=== PATIENT | female | born 1965 | race African-American/Black ===

== ENCOUNTER 2021-02-14 11:25 | Outpatient (REF) | payer OTHER, SELFPAY ==
--- NOTE | ~2021-02-14 | XR_ITS ---
EXAMINATION: XR LUMBOSACRAL SPINE CLINICAL INFORMATION: Back pain. COMPARISON: None TECHNIQUE: Three views of the lumbosacral spine. FINDINGS: Mild levocurvature of the lumbar spine. The lumbar lordosis is maintained. No acute fracture or subluxation. No loss of vertebral body height. Mild multilevel loss of intervertebral disc height with tiny endplate osteophytes. Bilateral facet arthropathy at L4 through S1. No lytic or blastic osseous lesion. No abnormal soft tissue calcification. XR/XR lumbar spine 2-3V IMPRESSION: Mild multilevel degenerative disc disease. Bilateral facet arthropathy at L4 through S1.
--- NOTE | ~2021-02-14 | XR_ITS ---
EXAMINATION: XR SHOULDER, LEFT CLINICAL INFORMATION: Left shoulder pain. COMPARISON: None TECHNIQUE: AP external rotation, Grashey, scapular Y, and axillary views of the left shoulder. FINDINGS: Small acromioclavicular marginal osteophytes with tiny subacromial spurs. Tiny inferior glenohumeral marginal osteophytes. No osseous erosion. No fracture or dislocation. XR/XR shoulder LT min 2V IMPRESSION: Mild acromioclavicular osteoarthritis with tiny subacromial spurs. Minimal glenohumeral osteoarthritis.
== END 2021-02-14 11:26 | disposition home or self-care (01) ==
LOC: HO.XRAY 11:25
PROVIDERS: PCP Internal Medicine; Visit Provider Internal Medicine
DX: M54.9 Dorsalgia, unspecified (principal); M25.512 Pain in left shoulder
CPT/HCPCS: 72100; 73030

== ENCOUNTER 2021-04-06 10:00 | Outpatient (RCR) | payer OTHER, SELFPAY ==
--- NOTE | 2021-03-05 13:50 | MHC.PT.EP ---
[facility] [place] Office [place] Office [place] Office [address] Alan Schwartz [address] [phone] F: [phone] F: [phone] F: [phone] F: [phone] Physical Therapy Plan of Care Date of Evaluation: Date of Surgery: Diagnosis: Unspecified Dorsalgia and L shoulder pain. 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 Pt is deemed an appropriate candidate to receive skilled PT in order to address her physical limitations to improve her functional ability. Frequency and Duration: The patient will be seen 2 x / wk x 5 wks. Short Term Goals: Initiate HEP. Pt will achieve symmetrical shoulder AROM flexion; initial: 30 Degrees L arm flexion. Chcf Goals: I with HEP. Pt will be able to place objects on a high shelf with managed Sx. initial: unable. Pt will be able to push and pull objects of weight with managed Sx. Initial: unable Treatment Plan: Modalities to reduce pain, spasms and effusion. Manual therapy to restore motion and function. Therapeutic exercise to improve strength and flexibility. Neuromuscular re-education for posture and balance. Therapeutic activities to return to functional activities of daily living. Electronically signed by: Reynold Boo PT. Please sign and return to therapist. Thank you for your referral.
--- NOTE | 2021-04-06 11:28 | MHC.PT.DC ---
[facility] [place] Office [place] Office [place] Office [address] Alan Schwartz 140 [facility] [phone] F: [phone] F: [phone] F: [phone] F: [phone] Physical Therapy Discharge Report Diagnosis: Unspecified Dorsalgia and L shoulder pain. Date of Surgery: Date of Evaluation: 03/02/21 Date of Discharge: 04/06/21 Treatments to Date: 8 Cancellations to Date: No Shows to Date: Discharge Status: Achieved Goals Improved Function Independent with HEP Discharge Summary: Manasa was referred to PT for eval/treat of traumatic L arm and dorsal pain secondary to decreased L UE strength and ROM, decreased posture, increased tissue tension and pain resulting decreased functional abilities. Manasa participated in her ther/ex during PT visits. W/in 8 visits of physical therapy, pt was able to address all of her physical limitation, improve her functional abilities, and achieve all of her goals. Pt and PT in agreement with DC. PT recommends pt to cont participating her HEP. Electronically signed by: Reynold Boo PT. Please sign and return to therapist. Thank you for your referral.
== END 2021-04-06 11:29 | disposition home or self-care (01) ==
LOC: HO.PTCHIC 10:00
PROVIDERS: PCP Internal Medicine; Visit Provider Internal Medicine
DX: M54.9 Dorsalgia, unspecified (principal); M25.519 Pain in unspecified shoulder
CPT/HCPCS: 97014; 97110; 97140; 97161

== ENCOUNTER 2021-04-06 12:27 | Outpatient (RCR) | payer OTHER, SELFPAY | END 2021-04-18 15:35 | disposition home or self-care (01) | LOC: HO.WCC 12:27 | PROVIDERS: PCP Internal Medicine; Visit Provider Physician Assistant | DX: L02.31 Cutaneous abscess of buttock (principal) | CPT/HCPCS: 99212 ==

== ENCOUNTER → 2021-05-01 16:00 | Outpatient (BNVA) | payer OTHER, SELFPAY | PROVIDERS: PCP Internal Medicine; Referring Provider Internal Medicine; Visit Provider Surgery ==

== ENCOUNTER 2022-03-14 15:39 | Outpatient (REF) | payer OTHER, SELFPAY ==
[2022-03-15 03:27] LABS: CT PCR NOT DETECTED (Not Detect.); NG PCR NOT DETECTED (Not Detect.)
[2022-03-20 22:07] LABS: HPV mRNA E6/E7 rflx Not Detected (Not Detected)
== END 2022-03-14 15:40 | disposition home or self-care (01) ==
LOC: HO.LAB 15:39
PROVIDERS: Visit Provider Obstetrics & Gynecology
DX: Z01.419 Encounter for gynecological examination (general) (routine) without abnormal findings (principal); R10.2 Pelvic and perineal pain; I10 Essential (primary) hypertension; E03.9 Hypothyroidism, unspecified; E78.5 Hyperlipidemia, unspecified; Z13.0 Encounter for screening for diseases of the blood and blood-forming organs and certain disorders involving the immune mechanism; Z11.51 Encounter for screening for human papillomavirus (HPV); Z11.3 Encounter for screening for infections with a predominantly sexual mode of transmission
CPT/HCPCS: 87491; 87591; 87624; 88142

== ENCOUNTER 2022-05-02 12:30 | Outpatient (REF) | payer OTHER, SELFPAY ==
--- NOTE | ~2022-05-02 | US_ITS ---
EXAMINATION: US PELVIS CLINICAL INFORMATION: Pelvic and perineal pain. COMPARISON: None. TECHNIQUE: Ultrasound of the pelvis is performed using both transabdominal and transvaginal transducers along with Doppler. Transvaginal imaging is performed due to inadequate visualization transabdominally. FINDINGS: UTERUS: The uterus is anteverted and measures 7.4 cm in length, 2.9 mL in AP and 4.6 cm in transverse dimension. The double wall endometrial thickness is 0.3 cm and appears heterogeneous. The uterus is smooth in contour and heterogeneous echogenicity. No visible fibroid. ADNEXA: Both ovaries are visualized. There is normal color flow to the adnexa. There is no ovarian torsion. There is no pelvic ascites or fluid collection. Right ovary measures 2.3 x 1.1 x 1.7 cm and volume 2.3 mL. Small echogenic calcification seen. Previously right ovary measured 2.3 x 1.2 x 1.4 cm and volume 2.06 cm. Left ovary measures 2.5 x 1.2 x 1.8 cm and volume 2.8 mL. Previously it measured 1.5 x 0.9 x 1.6 cm and volume 1.1 mL. US/US pelvic and transvaginal IMPRESSION: Heterogeneous myometrium. No focal lesion seen. Calcifications within the right ovary.
== END 2022-05-02 12:31 | disposition home or self-care (01) ==
LOC: HO.US 12:30
PROVIDERS: Visit Provider Obstetrics & Gynecology
DX: R10.2 Pelvic and perineal pain (principal)
CPT/HCPCS: 76830; 76856

== ENCOUNTER 2023-03-20 12:07 | Outpatient (AMB) | payer OTHER, SELFPAY ==
[2023-03-20 12:23] VITALS: BP 130/78; PULSE 84; O2SAT 97; BMI 36.4
--- NOTE | 2023-03-20 12:23 | MHC.PC.OV ---
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 Accompanied by: Self / Same As Patient Allergies No Known Allergies [No Known Allergies*] Allergy (Verified 03/20/23 12:23) Medication List - Last Reconciled 03/20/23 by Gerardo Hand MD multivitamin 1 tab PO DAILY Tobacco use date assessed: 03/20/23 Dental Screening Dental Screen Date: 03/20/23 Did you have a dental visit in the last 12 months?: Yes Did you have a dental problem in the last 6 months where you did not have access to dental care?: No Was dental information given to patient?: Patient has dentist HPI Annual exam HPI Details healthy [facility] Medical History Obesity Wound of buttock Surgical History No pertinent past surgical history Family History Mother No problems noted. Father No problems noted. Social History Housing: House Patient Tobacco Use Status: Never used Tobacco e-Cigarette/Vaping Use: Never Used Second Hand Smoke Exposure: No service: No Current occupational status: employed Cognitive needs: No Hearing needs: No Vision needs: Yes Questionnaire PHQ-9 Over the last 2 weeks, how often have you been bothered by any of the following problems? 1. Little interest or pleasure in doing things: not at all 2. Feeling down, depressed, or hopeless: not at all 3. Trouble falling or staying asleep, or sleeping too much: not at all 4. Feeling tired or having little energy: not at all 5. Poor appetite or overeating: not at all 6. Feeling bad about yourself - or that you are a failure or have let yourself or your family down: not at all 7. Trouble concentrating on things, such as reading the newspaper or watching television: not at all 8. Moving or speaking so slowly that other people could have noticed. Or the opposite - being so fidgety or restless that you have been moving around a lot more than usual: not at all 9. Thoughts that you would be better off or of hurting yourself in some way: not at all Total score: 0 Depression Screening Interpretation: Negative 10324 - PHQ-9 Billing: Yes Source: Developed by Drs. Destin Bradford, Anni Eden, Enrique Hawk and colleagues, with an educational yousif from [employer]. Thrive Questionnaire Date Thrive assessed: 03/20/23 I am a: Patient What is your living situation today?: I have a steady place to live Within the past 12 months, did the food you bought not last and you didn't have the money to get more?: Never true Within the past 12 months, did you worry whether your food would run out before you got money to buy more?: Never true Do you have trouble paying for medicines?: No Do you have trouble getting transportation to medical appointments?: No Do you have trouble paying your heating and electricity bill?: No Do you have trouble taking care of your child, family member or friend?: No Do you have trouble with day-to-day activities such as bathing, preparing meals, shopping, managing finances, etc.?: No Are you currently unemployed and looking for a job?: No Are you interested in more education?: No Currently or been in a relationship where the following occur: no concerns reported AUDIT C Alcohol Use Questionnaire (AUDIT-C) 1. How often do you have a drink containing alcohol?: Never Total Score: 0 Score Reviewed/Action Taken: Yes EDWARDO-7 AMB Questionnaire EDWARDO-7 Date EDWARDO - 7 assessed: 03/20/23 Feeling nervous, anxious, or on edge: 0 = Not at all Not being able to stop or control worryin = Not at all Worrying too much about different things: 0 = Not at all Trouble relaxin = Not at all Being so restless that it is hard to sit still: 0 = Not at all Becoming easily annoyed or irritable: 0 = Not at all Feeling afraid as if something awful might happen: 0 = Not at all Total EDWARDO-7 score (0-4 normal; 5-9 mild; 10-14 moderate; 15-21 severe): 0 Source: Developed by Drs. Destin Bradford, Anni Eden, Enrique Hawk and colleagues, with an educational yousif from [employer]. EDWARDO-7 Assessment Billing EDWARDO-7 Assessment Tool: EDWARDO-7 Assessment 63311 Review of Systems Const Denies chills, Denies fatigue, Denies headache(s) and Denies weight loss Eyes Denies change in vision, Denies diplopia and Denies eye pain ENT Denies vertigo, Denies dizziness, Denies headache(s) and Denies nasal discharge Card Denies chest pain, Denies rapid heart rate and Denies dyspnea on exertion Resp Denies chest congestion, Denies cough, Denies pain with cough and Denies dyspnea on exertion GI Denies abdominal pain, Denies hematochezia and Denies change in bowel habits Musc Denies myalgias, Denies arthralgias and Denies joint swelling Skin/Breast Denies lesions and Denies unusual bruising Neuro Denies vertigo, Denies dizziness, Denies headache(s) and Denies focal weakness Endo Denies fatigue Physical exam (Primary Care) Vital Signs: Last Vital Signs Pulse 84 03/20/23 12:23 BP 130/78 03/20/23 12:23 Pulse Ox 97 03/20/23 12:23 Oxygen Delivery Method Room Air 03/20/23 12:23 BMI result Body Mass Index 36.4 obesity BMI Assessment/Plan discussion: High BMI High, discussed plan: lifestyle, weight reduction, dietary and physical activity Tobacco/Smoking Status: Tobacco use Status Tobacco use date assessed 03/20/23 03/20/23 12:26 Patient Tobacco Use Status Never used Tobacco 03/20/23 12:26 e-Cigarette/Vaping Use Never Used 03/20/23 12:26 PHQ-9: PHQ-9 Score PHQ-9: Total score 0 03/20/23 12:26 Depression Screening Interpretation: Negative Thrive Assessment: Date of Thrive Assessment Date Thrive assessed 03/20/23 03/20/23 12:26 Currently or been in a relationship where the following occur: no concerns reported Const General: cooperative, healthy appearing and no acute distress Orientation/consciousness: oriented to person, oriented to place and oriented to time HENMT Head: Yes normal to inspection, Yes normocephalic and Yes atraumatic Mouth: Normal oral and palatal mucosa present and tongue normal Throat: Yes posterior oropharynx normal and Yes uvula midline Eyes General: appearance normal, both eyes and all related structures Neck Neck: Yes normal visual inspection, Yes full ROM and Yes no lymphadenopathy Thyroid: Thyroid normal Carotids: normal carotid upstroke Chest Chest palpation & inspection: normal inspection of the chest Resp Effort & Inspection: normal respiratory effort and able to speak in complete sentences Auscultation: clear to auscultation bilaterally Cardio Jugular venous distension: no JVD Palpation: normal PMI Rate: regular rate Rhythm: regular rhythm Heart sounds: S1 normal heart sound present and S2 normal heart sound present GI Inspection: Yes normal to inspection Palpation (GI): Soft to palpation and No hepatosplenomegaly present Auscultation: normal bowel sounds General: Yes no CVA tenderness Back/Spine/Pelvis Back: no CVA tenderness Skin General skin exam: no rashes or lesions noted Neuro General: oriented to person, oriented to place and oriented to time Extrem General: Yes normal to inspection and Yes full ROM Assessment and Plan Assessment & Plan (1) Physical exam: Code(s): Z00.00 - Encounter for general adult medical examination without abnormal findings Plan: do labs (2) Obesity: Comment: as above Code(s): E66.9 - Obesity, unspecified Orders: Orders Comprehensive [place]. Panel Fast Today N28.9 - Disorder of kidney and ureter, unspecified Lipid Panel Today E78.5 - Hyperlipidemia, unspecified Thyroid Stimulating Hormone Today E03.9 - Hypothyroidism, unspecified Complete Blood Count Auto Diff Today D64.9 - Anemia, unspecified MM tomosynthesis screen imp BI Today Z12.31 - Encounter for screening mammogram for malignant neoplasm of breast Coding Level of Care Code Est Pt Prev Care 40-64y(19407) Diagnoses Physical exam Z00.00 Obesity E66.9 Additional Codes EDWARDO-7 Assessment Billing - EDWARDO-7 Assessment Tool: EDWARDO-7 Assessment 56095 ([id number])
== END 2023-03-20 13:03 | disposition home or self-care (01) ==
PROVIDERS: PCP Internal Medicine; Visit Provider Internal Medicine
DX: Z00.00 Encounter for general adult medical examination without abnormal findings (principal); E66.9 Obesity, unspecified; Z68.36 Body mass index [BMI] 36.0-36.9, adult
CPT/HCPCS: 99396

== ENCOUNTER 2023-04-01 11:04 | Outpatient (REF) | payer OTHER, SELFPAY ==
[2023-04-01 11:13] LABS: MANUAL DIFF FLAG NO
[2023-04-01 11:26] LABS: Basophils Percent Auto 0.5 % (0-2); Eosinophils Absolute Auto 0.1 X10*3/uL (0.0-0.4); Eosinophils Percent Auto 0.9 % (0-4); Hematocrit 40.2 % (37.0-47.0); Imm Gran Abs Auto 0.01 X10*3/uL (0.00-0.03); Imm Gran Pct Auto 0.2 % (0.0-0.4); Lymphocytes Absolute Auto 2.2 X10*3/uL (1.2-4.9); Lymphocytes Percent Auto 39.7 % (20-40); Mean Corpuscular HGB Conc 32.3 g/dl (31.0-35.0); Mean Corpuscular Hemoglobin 26.8 pg (27.0-33.0); Mean Corpuscular Volume 82.9 fL (80.0-98.0); Mean Platelet Volume 11.1 fL (9.4-12.3); Monocytes Absolute Auto 0.6 X10*3/uL (0.1-1.2); Monocytes Percent Auto 11.1 % (2-11); Neutrophils Absolute Auto 2.7 x10*3/uL (2.0-8.3); Neutrophils Percent Auto 47.6 % (45-73); Platelet Count 223 X10*3/uL (160-400); Red Blood Count 4.85 X10*6/uL (4.20-5.50); Red Cell Distribution Width 12.6 % (11.0-16.0); White Blood Count 5.6 X10*3/uL (4.8-10.8)
[2023-04-01 12:23] LABS: Alanine Aminotransferase 50 U/L (0-31); Albumin Level 4.4 g/dL (3.5-5.0); Alkaline Phosphatase 120 U/L (39-117); Anion Gap 13 (12-20); Aspartate Amino Transferase 41 U/L (5-31); Bilirubin Total 0.5 mg/dL (0.0-1.0); Blood Urea Nitrogen 5 mg/dL (9-16); Calcium 9.3 mg/dL (8.4-10.2); Carbon Dioxide 29 mmol/L (22-29); Chloride 102 mmol/L (96-108); Cholesterol 252 mg/dL (<200); Estimated Glomerular Filt Rate > 60; Glucose Fasting 175 mg/dL (60-99); HDL Cholesterol 49 mg/dL (>40); LDL Cholesterol Calculated 179 mg/dL (<100); Potassium 4.2 mmol/L (3.3-5.1); Sodium 140 mmol/L (135-145); Total Protein 8.3 g/dL (6.5-8.0); Triglycerides 120 mg/dL (<150)
[2023-04-01 12:41] LABS: Thyroid Stimulating Hormone 1.66 uIU/mL (0.32-4.0)
== END 2023-04-01 11:05 | disposition home or self-care (01) ==
LOC: HO.LAB 11:04
PROVIDERS: PCP Internal Medicine; Visit Provider Internal Medicine
DX: E03.9 Hypothyroidism, unspecified (principal); N28.9 Disorder of kidney and ureter, unspecified; D64.9 Anemia, unspecified; E78.5 Hyperlipidemia, unspecified
CPT/HCPCS: 36415; 80053; 80061; 84443; 85025

== ENCOUNTER 2023-04-04 15:15 | Outpatient (REF) | payer OTHER, SELFPAY ==
[2023-04-04 16:01] LABS: Estimated Average Glucose 255 mg/dL; Hemoglobin A1c % 10.5 % (<6.0)
[2023-04-05 14:15] LABS: ~Hepatitis B Surface Antibody NONREACTIVE (Nonreactive)
[2023-04-07 12:08] LABS: TS Negative Control Passed; TS Panel A 0; TS Panel B 6; TS Positive Control Passed; TSpotTB Borderline (Negative)
[2023-04-08 21:37] LABS: Rubella IgG Antibody >33.00 Index; Rubeola IgG (Measles) >300.00 AU/mL
== END 2023-04-04 15:16 | disposition home or self-care (01) ==
LOC: HO.LAB 15:15
PROVIDERS: PCP Internal Medicine; Visit Provider Internal Medicine
DX: Z00.00 Encounter for general adult medical examination without abnormal findings (principal); Z11.1 Encounter for screening for respiratory tuberculosis; R73.9 Hyperglycemia, unspecified; Z28.39 Other underimmunization status
CPT/HCPCS: 36415; 83036; 86481; 86706; 86735; 86762; 86765; 86787

== ENCOUNTER 2023-04-08 14:01 | Outpatient (AMB) | payer OTHER, SELFPAY ==
--- NOTE | 2023-04-08 14:17 | AM.OFFVISNUR ---
Intake Intake Visit Reasons: ppd implant Allergies No Known Allergies [No Known Allergies*] Allergy (Verified 03/20/23 12:23) Office Meds tuberculin PPD Performing Provider: Gerardo Hand MD Administered by: Tashia Barkley RN on 04/08/23 14:17 Dose Route Admin Location Lot Number Expiration Date NDC Canvas Cutter 0.1 mL intradermal [id number] 06/02/26 07982-992-20 [employer] Coding Diagnoses Assessment & Plan Assessment & Plan Orders: Orders AMB PPD Planted Today Z11.1 - Encounter for screening for respiratory tuberculosis
== END 2023-04-08 14:14 | disposition home or self-care (01) ==
PROVIDERS: PCP Internal Medicine; Visit Provider Internal Medicine
DX: Z11.1 Encounter for screening for respiratory tuberculosis (principal)
CPT/HCPCS: 86580

== ENCOUNTER 2023-04-09 10:20 | Outpatient (AMB) | payer OTHER, SELFPAY ==
[2023-04-09 10:20] VITALS: BP 136/78; PULSE 110; O2SAT 98; BMI 35.4
--- NOTE | 2023-04-09 10:20 | MHC.PC.OV ---
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: Not Required per policy Accompanied by: Self / Same As Patient Allergies No Known Allergies [No Known Allergies*] Allergy (Verified 04/09/23 10:21) Tobacco use date assessed: 03/20/23 Dental Screening Dental Screen Date: 04/09/23 Did you have a dental visit in the last 12 months?: Yes Did you have a dental problem in the last 6 months where you did not have access to dental care?: No Was dental information given to patient?: Patient has dentist HPI DM follow up HPI Details has DM again; had in the past but recurred [facility] Medical History Obesity Vaginal pain Wound of buttock Surgical History No pertinent past surgical history Family History Mother No problems noted. Father No problems noted. Social History Housing: House Patient Tobacco Use Status: Never used Tobacco e-Cigarette/Vaping Use: Never Used Second Hand Smoke Exposure: No service: No Current occupational status: employed Cognitive needs: No Hearing needs: No Vision needs: Yes Questionnaire PHQ-9 Over the last 2 weeks, how often have you been bothered by any of the following problems? 1. Little interest or pleasure in doing things: not at all 2. Feeling down, depressed, or hopeless: not at all 3. Trouble falling or staying asleep, or sleeping too much: not at all 4. Feeling tired or having little energy: not at all 5. Poor appetite or overeating: not at all 6. Feeling bad about yourself - or that you are a failure or have let yourself or your family down: not at all 7. Trouble concentrating on things, such as reading the newspaper or watching television: not at all 8. Moving or speaking so slowly that other people could have noticed. Or the opposite - being so fidgety or restless that you have been moving around a lot more than usual: not at all 9. Thoughts that you would be better off or of hurting yourself in some way: not at all Total score: 0 Depression Screening Interpretation: Negative 42104 - PHQ-9 Billing: Yes Source: Developed by Drs. Destin Bradford, Anni Eden, Enrique Hawk and colleagues, with an educational yousif from [employer]. Thrive Questionnaire Date Thrive assessed: 03/20/23 AUDIT C Alcohol Use Questionnaire (AUDIT-C) 1. How often do you have a drink containing alcohol?: Never Total Score: 0 Score Reviewed/Action Taken: Yes EDWARDO-7 AMB Questionnaire EDWARDO-7 Date EDWARDO - 7 assessed: 03/20/23 Source: Developed by Drs. Destin Bradford, Anni Eden, Enrique Hawk and colleagues, with an educational yousif from [employer]. Review of Systems Const Denies chills, Denies fatigue, Denies headache(s) and Denies weight loss Eyes Denies change in vision, Denies diplopia and Denies eye pain ENT Denies vertigo, Denies dizziness, Denies headache(s) and Denies nasal discharge Card Denies chest pain, Denies rapid heart rate and Denies dyspnea on exertion Resp Denies chest congestion, Denies cough, Denies pain with cough and Denies dyspnea on exertion GI Denies abdominal pain, Denies hematochezia and Denies change in bowel habits Musc Denies myalgias, Denies arthralgias and Denies joint swelling Skin/Breast Denies lesions and Denies unusual bruising Neuro Denies vertigo, Denies dizziness, Denies headache(s) and Denies focal weakness Endo Denies fatigue Physical exam (Primary Care) Vital Signs: Last Vital Signs Pulse 110 H 04/09/23 10:20 BP 136/78 04/09/23 10:20 Pulse Ox 98 04/09/23 10:20 Oxygen Delivery Method Room Air 04/09/23 10:20 BMI result Body Mass Index 35.4 Tobacco/Smoking Status: Tobacco use Status Tobacco use date assessed 03/20/23 04/09/23 10:26 Patient Tobacco Use Status Never used Tobacco 04/09/23 10:26 e-Cigarette/Vaping Use Never Used 04/09/23 10:26 PHQ-9: PHQ-9 Score PHQ-9: Total score 0 04/09/23 10:26 Depression Screening Interpretation: Negative Thrive Assessment: Date of Thrive Assessment Date Thrive assessed 03/20/23 04/09/23 10:26 Const General: cooperative, healthy appearing and no acute distress Orientation/consciousness: oriented to person, oriented to place and oriented to time HENMT Head: Yes normal to inspection, Yes normocephalic and Yes atraumatic Mouth: Normal oral and palatal mucosa present and tongue normal Throat: Yes posterior oropharynx normal and Yes uvula midline Eyes General: appearance normal, both eyes and all related structures Neck Neck: Yes normal visual inspection, Yes full ROM and Yes no lymphadenopathy Thyroid: Thyroid normal Carotids: normal carotid upstroke Chest Chest palpation & inspection: normal inspection of the chest Resp Effort & Inspection: normal respiratory effort and able to speak in complete sentences Auscultation: clear to auscultation bilaterally Cardio Jugular venous distension: no JVD Palpation: normal PMI Rate: regular rate Rhythm: regular rhythm Heart sounds: S1 normal heart sound present and S2 normal heart sound present GI Inspection: Yes normal to inspection Palpation (GI): Soft to palpation and No hepatosplenomegaly present Auscultation: normal bowel sounds General: Yes no CVA tenderness Back/Spine/Pelvis Back: no CVA tenderness Skin General skin exam: no rashes or lesions noted Neuro General: oriented to person, oriented to place and oriented to time Extrem General: Yes normal to inspection and Yes full ROM Assessment and Plan Assessment & Plan (1) Type 2 diabetes mellitus with obesity: Code(s): E11.69 - Type 2 diabetes mellitus with other specified complication; E66.9 - Obesity, unspecified Plan: rx Orders: Orders Glucose Fasting Today R73.9 - Hyperglycemia, unspecified Hemoglobin A1c Today R73.9 - Hyperglycemia, unspecified Medications: New metformin 500 mg PO BID 180 tabs 8RF Coding Level of Care Code Est Pt Level 3 (10632) Diagnoses Type 2 diabetes mellitus with obesity E11.69; E66.9
== END 2023-04-09 10:31 | disposition home or self-care (01) ==
PROVIDERS: PCP Internal Medicine; Visit Provider Internal Medicine
DX: E11.69 Type 2 diabetes mellitus with other specified complication (principal); E66.9 Obesity, unspecified; Z68.35 Body mass index [BMI] 35.0-35.9, adult
CPT/HCPCS: 99213

== ENCOUNTER 2023-04-17 15:25 | Outpatient (REF) | payer OTHER, SELFPAY ==
--- NOTE | ~2023-04-17 | XR_ITS ---
EXAMINATION: XR CHEST CLINICAL INFORMATION: Reason for Exam R76.11 - Nonspecific reaction to tuberculin skin test without active tub... COMPARISON: Chest radiograph 05/29/2017 TECHNIQUE: 2 views of the chest FINDINGS: Lines and tubes: None. Clear lungs. No pleural effusion. No pneumothorax. Normal cardiomediastinal silhouette. XR/XR chest 2V IMPRESSION: * Clear lungs.
== END 2023-04-17 15:26 | disposition home or self-care (01) ==
LOC: HO.XRAY 15:25
PROVIDERS: PCP Internal Medicine; Visit Provider Internal Medicine
DX: R76.11 Nonspecific reaction to tuberculin skin test without active tuberculosis (principal)
CPT/HCPCS: 71046

== ENCOUNTER 2023-04-23 13:23 | Outpatient (AMB) | payer OTHER, SELFPAY ==
[2023-04-23 13:25] VITALS: BP 136/82; PULSE 81; O2SAT 99; BMI 35.8
--- NOTE | 2023-04-23 13:25 | A.OFFPC_ITS ---
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 Accompanied by: Self / Same As Patient Allergies No Known Allergies [No Known Allergies*] Allergy (Verified 04/23/23 13:25) Medication List - Last Reconciled 04/23/23 by Gerardo Hand MD metformin 500 mg PO BID multivitamin 1 tab PO DAILY Tobacco use date assessed: 03/20/23 Dental Screening Dental Screen Date: 04/23/23 Did you have a dental visit in the last 12 months?: Yes Did you have a dental problem in the last 6 months where you did not have access to dental care?: No Was dental information given to patient?: Patient has dentist HPI 3 weeks f/ u HPI Details DM; states she is compliant with meds; has not done her labs PFSH Medical History Vaginal pain Obesity Wound of buttock Surgical History No pertinent past surgical history Family History Mother No problems noted. Father No problems noted. Social History Housing: House Patient Tobacco Use Status: Never used Tobacco e-Cigarette/Vaping Use: Never Used Second Hand Smoke Exposure: No service: No Current occupational status: employed Cognitive needs: No Hearing needs: No Vision needs: Yes Questionnaire PHQ-9 Over the last 2 weeks, how often have you been bothered by any of the following problems? 1. Little interest or pleasure in doing things: not at all 2. Feeling down, depressed, or hopeless: not at all 3. Trouble falling or staying asleep, or sleeping too much: not at all 4. Feeling tired or having little energy: not at all 5. Poor appetite or overeating: not at all 6. Feeling bad about yourself - or that you are a failure or have let yourself or your family down: not at all 7. Trouble concentrating on things, such as reading the newspaper or watching television: not at all 8. Moving or speaking so slowly that other people could have noticed. Or the opposite - being so fidgety or restless that you have been moving around a lot more than usual: not at all 9. Thoughts that you would be better off or of hurting yourself in some way: not at all Total score: 0 Depression Screening Interpretation: Negative 91585 - PHQ-9 Billing: Yes Source: Developed by Drs. Destin Bradford, Enrique Valerio and colleagues, with an educational yousif from [employer]. Thrive Questionnaire Date Thrive assessed: 03/20/23 AUDIT C Alcohol Use Questionnaire (AUDIT-C) 1. How often do you have a drink containing alcohol?: Never Total Score: 0 Score Reviewed/Action Taken: Yes EDWARDO-7 AMB Questionnaire EDWARDO-7 Date EDWARDO - 7 assessed: 03/20/23 Source: Developed by Drs. Destin Bradford, Anni Eden, Enrique Hawk and colleagues, with an educational yousif from [employer]. Review of Systems Const Denies chills, Denies headache(s) and Denies weight loss ENT Denies headache(s) Card Denies chest pain, Denies syncope, Denies irregular heart rhythm and Denies dyspnea Resp Denies chest congestion, Denies cough and Denies dyspnea GI Denies abdominal pain, Denies change in stool character, Denies nausea and Denies vomiting Musc Denies deformity and Denies joint swelling Neuro Denies syncope and Denies headache(s) Physical exam (Primary Care) Vital Signs: Last Vital Signs Pulse 81 04/23/23 13:25 BP 136/82 04/23/23 13:25 Pulse Ox 99 04/23/23 13:25 Oxygen Delivery Method Room Air 04/23/23 13:25 BMI result Body Mass Index 35.8 Tobacco/Smoking Status: Tobacco use Status Tobacco use date assessed 03/20/23 04/23/23 13:29 Patient Tobacco Use Status Never used Tobacco 04/23/23 13:29 e-Cigarette/Vaping Use Never Used 04/23/23 13:29 PHQ-9: PHQ-9 Score PHQ-9: Total score 0 04/23/23 13:29 Depression Screening Interpretation: Negative Thrive Assessment: Date of Thrive Assessment Date Thrive assessed 03/20/23 04/23/23 13:29 Const General: cooperative, comfortable, no acute distress and alert Neck Neck: Yes no lymphadenopathy Thyroid: Thyroid normal Resp Effort & Inspection: normal respiratory effort Auscultation: clear to auscultation bilaterally Percussion: percussion normal Cardio Jugular venous distension: no JVD Palpation: normal PMI Rate: regular rate Rhythm: regular rhythm Heart sounds: S1 normal heart sound present and S2 normal heart sound present GI Inspection: Yes normal to inspection Palpation (GI): No hepatosplenomegaly present Skin General skin exam: no rashes or lesions noted Extrem General: Yes no clubbing, cyanosis or edema Assessment and Plan Assessment & Plan (1) Type 2 diabetes mellitus with obesity: Code(s): E11.69 - Type 2 diabetes mellitus with other specified complication; E66.9 - Obesity, unspecified Plan: do labs and cont rx Coding Level of Care Code Est Pt Level 3 (04621) Diagnoses Type 2 diabetes mellitus with obesity E11.69; E66.9
== END 2023-04-23 14:50 | disposition home or self-care (01) ==
PROVIDERS: PCP Internal Medicine; Visit Provider Internal Medicine
DX: E11.69 Type 2 diabetes mellitus with other specified complication (principal); E66.9 Obesity, unspecified; Z68.35 Body mass index [BMI] 35.0-35.9, adult
CPT/HCPCS: 99213

== ENCOUNTER 2024-03-23 13:11 | Outpatient (AMB) | payer OTHER, SELFPAY ==
[2024-03-23 13:18] VITALS: BP 134/78; PULSE 81; O2SAT 97; BMI 34.7
--- NOTE | 2024-03-23 13:18 | A.OFFPC_ITS ---
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 Accompanied by: Self / Same As Patient Allergies No Known Allergies [No Known Allergies*] Allergy (Verified 03/23/24 13:23) Medication List - Last Reconciled 03/23/24 by Gerardo Hand MD multivitamin 1 tab PO DAILY Tobacco use date assessed: 03/23/24 Dental Screening Dental Screen Date: 03/23/24 Did you have a dental visit in the last 12 months?: Yes Did you have a dental problem in the last 6 months where you did not have access to dental care?: No Was dental information given to patient?: Patient has dentist HPI Annual exam HPI Details has DM A1C over 12; patient denies she has DM and refuses all treatment; she is obese and refuses any treatment for that too PFSH Medical History Vaginal pain Obesity Wound of buttock Surgical History No pertinent past surgical history Family History Mother No problems noted. Father No problems noted. Social History Housing: House Patient Tobacco Use Status: Never used Tobacco Tobacco use type: Cigarette e-Cigarette/Vaping Use: Never Used Second Hand Smoke Exposure: No service: No Current occupational status: employed Cognitive needs: No Hearing needs: No Vision needs: Yes Questionnaire PHQ-9 Over the last 2 weeks, how often have you been bothered by any of the following problems? 1. Little interest or pleasure in doing things: not at all 2. Feeling down, depressed, or hopeless: not at all 3. Trouble falling or staying asleep, or sleeping too much: not at all 4. Feeling tired or having little energy: not at all 5. Poor appetite or overeating: not at all 6. Feeling bad about yourself - or that you are a failure or have let yourself or your family down: not at all 7. Trouble concentrating on things, such as reading the newspaper or watching television: not at all 8. Moving or speaking so slowly that other people could have noticed. Or the opposite - being so fidgety or restless that you have been moving around a lot more than usual: not at all 9. Thoughts that you would be better off or of hurting yourself in some way: not at all Total score: 0 Depression Screening Interpretation: Negative Depression Screening Done: Yes Source: Developed by Drs. Destin Bradford, Anni Eden, Enrique Hawk and colleagues, with an educational yousif from [employer]. Thrive Questionnaire Date Thrive assessed: 03/23/24 I am a: Patient What is your living situation today?: I have a steady place to live Within the past 12 months, did the food you bought not last and you didn't have the money to get more?: Never true Within the past 12 months, did you worry whether your food would run out before you got money to buy more?: Never true Do you have trouble paying for medicines?: No Do you have trouble getting transportation to medical appointments?: No Do you have trouble paying your heating and electricity bill?: No Do you have trouble taking care of your child, family member or friend?: No Do you have trouble with day-to-day activities such as bathing, preparing meals, shopping, managing finances, etc.?: No Are you currently unemployed and looking for a job?: No Are you interested in more education?: No THRIVE Score: 0 EDWARDO-7 AMB Questionnaire EDWARDO-7 Date EDWARDO - 7 assessed: 03/23/24 Feeling nervous, anxious, or on edge: 0 = Not at all Not being able to stop or control worryin = Not at all Worrying too much about different things: 0 = Not at all Trouble relaxin = Not at all Being so restless that it is hard to sit still: 0 = Not at all Becoming easily annoyed or irritable: 0 = Not at all Feeling afraid as if something awful might happen: 0 = Not at all Total EDWARDO-7 score (0-4 normal; 5-9 mild; 10-14 moderate; 15-21 severe): 0 Source: Developed by Drs. Destin Bradford, Anni Eden, Enrique Hawk and colleagues, with an educational yousif from [employer]. EDWARDO-7 Assessment Billing EDWARDO-7 Assessment Tool: EDWARDO-7 Assessment 97974 Review of Systems Const Denies chills, Denies fatigue, Denies headache(s) and Denies weight loss Eyes Denies change in vision, Denies diplopia and Denies eye pain ENT Reports Normal hearing present, Denies vertigo, Denies dizziness, Denies headache(s) and Denies nasal discharge Card Denies chest pain, Denies rapid heart rate and Denies dyspnea on exertion Resp Denies chest congestion, Denies cough, Denies pain with cough and Denies dyspnea on exertion GI Denies abdominal pain, Denies hematochezia and Denies change in bowel habits Musc Denies myalgias, Denies arthralgias and Denies joint swelling Skin/Breast Denies lesions and Denies unusual bruising Neuro Reports Normal hearing present, Denies vertigo, Denies dizziness, Denies headache(s) and Denies focal weakness Endo Denies fatigue Physical exam (Primary Care) Vital Signs: Last Vital Signs Pulse 81 03/23/24 13:18 BP 134/78 03/23/24 13:18 Pulse Ox 97 03/23/24 13:18 Oxygen Delivery Method Room Air 03/23/24 13:18 BMI result Body Mass Index 34.7 Tobacco/Smoking Status: Tobacco use Status Tobacco use date assessed 03/23/24 03/23/24 13:28 Patient Tobacco Use Status Never used Tobacco 03/23/24 13:23 Tobacco use type Cigarette 03/23/24 13:28 e-Cigarette/Vaping Use Never Used 03/23/24 13:23 PHQ-9: PHQ-9 Score PHQ-9: Total score 0 03/23/24 13:28 Depression Screening Interpretation: Negative Thrive Assessment: Date of Thrive Assessment Date Thrive assessed 03/23/24 03/23/24 13:28 Const General: cooperative, healthy appearing and no acute distress Orientation/consciousness: oriented to person, oriented to place and oriented to time HENMT Head: Yes normal to inspection, Yes normocephalic and Yes atraumatic Mouth: Normal oral and palatal mucosa present and tongue normal Throat: Yes posterior oropharynx normal and Yes uvula midline Eyes General: appearance normal, both eyes and all related structures Neck Neck: Yes normal visual inspection, Yes full ROM and Yes no lymphadenopathy Thyroid: Thyroid normal Carotids: normal carotid upstroke Chest Chest palpation & inspection: normal inspection of the chest Resp Effort & Inspection: normal respiratory effort and able to speak in complete sentences Auscultation: clear to auscultation bilaterally Cardio Jugular venous distension: no JVD Palpation: normal PMI Rate: regular rate Rhythm: regular rhythm Heart sounds: S1 normal heart sound present and S2 normal heart sound present GI Inspection: Yes normal to inspection Palpation (GI): Soft to palpation and No hepatosplenomegaly present Auscultation: normal bowel sounds General: Yes no CVA tenderness Back/Spine/Pelvis Back: no CVA tenderness Skin General skin exam: no rashes or lesions noted Neuro General: oriented to person, oriented to place and oriented to time Cranial nerves: Yes Normal hearing present Extrem General: Yes normal to inspection and Yes full ROM Results AMB Hemoglobin A1c AMB Hemoglobin A1c 12.2 % Last Edit by Nichole Ray CMA on 03/23/24 13:2 9 Results Reviewed Results Reviewed: Laboratory Last Values Hgb A1c (Clinic) 12.2 % (4.0-6.0) H 03/23/24 13:28 Assessment and Plan Assessment & Plan (1) Physical exam: Code(s): Z00.00 - Encounter for general adult medical examination without abnormal findings Plan: do labs (2) Type 2 diabetes mellitus with obesity: Code(s): E11.69 - Type 2 diabetes mellitus with other specified complication; E66.9 - Obesity, unspecified Plan: refuses all treatment (3) Obesity: Comment: as above Code(s): E66.9 - Obesity, unspecified Plan: refuases all treatment Orders: Orders AMB Hemoglobin A1c Today E11.69 - Type 2 diabetes mellitus with other specified complication, E66.9 - Obesity, unspecified Complete Blood Count Auto Diff Today Z13.0 - Encounter for screening for diseases of the blood and blood-forming organs and certain disorders involving the immune mechanism Comprehensive [place]. Panel Fast Today Z13.9 - Encounter for screening, unspecified Thyroid Stimulating Hormone Today Z13.29 - Encounter for screening for other suspected endocrine disorder Lipid Panel Today Z13.220 - Encounter for screening for lipoid disorders Coding Level of Care Code Est Pt Prev Care 40-64y(51884) Diagnoses Physical exam Z00.00 Type 2 diabetes mellitus with obesity E11.69; E66.9 Obesity E66.9 Additional Codes EDWARDO-7 Assessment Billing - EDWARDO-7 Assessment Tool: EDWARDO-7 Assessment [id number] ([id number])
== END 2024-03-23 13:35 | disposition home or self-care (01) ==
PROVIDERS: PCP Internal Medicine; Visit Provider Internal Medicine
DX: Z00.00 Encounter for general adult medical examination without abnormal findings (principal); E11.69 Type 2 diabetes mellitus with other specified complication; E66.9 Obesity, unspecified; Z68.34 Body mass index [BMI] 34.0-34.9, adult
CPT/HCPCS: 83036; 99396

== ENCOUNTER 2025-03-30 13:49 | Outpatient (AMB) | payer OTHER, SELFPAY ==
[2025-03-30 13:56] VITALS: BP 130/72; PULSE 81; RESP 18; TEMP 36.2; O2SAT 95; BMI 34.8
--- NOTE | 2025-03-30 13:56 | MHC.PC.OV ---
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 Accompanied by: Self / Same As Patient Allergies No Known Allergies (No Known Allergies*) Allergy (Verified 03/30/25 14:11) Medication List - Last Reconciled 03/30/25 by JAHAIRA Almeida multivitamin 1 tab PO DAILY Tobacco use date assessed: 03/30/25 Dental Screening Dental Screen Date: 03/30/25 Did you have a dental visit in the last 12 months?: No Did you have a dental problem in the last 6 months where you did not have access to dental care?: No Was dental information given to patient?: Patient has dentist HPI annual exam HPI Details Dentist: up to date Eye:reports that she wear glasses but has not gotten her eyes checked for a while [place]: Right: Left: Corrected vision: short distance STI screening: Colonoscopy: cologuard Pap Smer: uP TO DATE mammogram: refused ordered PHQ-9: Flu:up to date COVID: x2 Tdap:2022 Diet:regular Exercise: PFSH Medical History Vaginal pain Obesity Wound of buttock Surgical History No pertinent past surgical history Family History Mother No problems noted. Father No problems noted. Social History Housing: House Patient Tobacco Use Status: Never used Tobacco Tobacco use type: Cigarette e-Cigarette/Vaping Use: Never Used Second Hand Smoke Exposure: No service: No Current occupational status: employed Cognitive needs: No Hearing needs: No Vision needs: Yes Questionnaire PHQ-9 Over the last 2 weeks, how often have you been bothered by any of the following problems? 1. Little interest or pleasure in doing things: not at all 2. Feeling down, depressed, or hopeless: not at all 3. Trouble falling or staying asleep, or sleeping too much: not at all 4. Feeling tired or having little energy: not at all 5. Poor appetite or overeating: not at all 6. Feeling bad about yourself - or that you are a failure or have let yourself or your family down: not at all 7. Trouble concentrating on things, such as reading the newspaper or watching television: not at all 8. Moving or speaking so slowly that other people could have noticed. Or the opposite - being so fidgety or restless that you have been moving around a lot more than usual: not at all 9. Thoughts that you would be better off or of hurting yourself in some way: not at all Total score: 0 Depression Screening Interpretation: Negative Depression Screening Done: Yes Source: Developed by Drs. Destin Bradford, Anni Eden, Enrique Hawk and colleagues, with an educational yousif from [employer]. Thrive Questionnaire Date Thrive assessed: 03/30/25 I am a: Patient What is your living situation today?: I have a steady place to live Within the past 12 months, did the food you bought not last and you didn't have the money to get more?: Never true Within the past 12 months, did you worry whether your food would run out before you got money to buy more?: Never true Do you have trouble paying for medicines?: No Do you have trouble getting transportation to medical appointments?: No Do you have trouble paying your heating and electricity bill?: No Do you have trouble taking care of your child, family member or friend?: No Do you have trouble with day-to-day activities such as bathing, preparing meals, shopping, managing finances, etc.?: No Are you currently unemployed and looking for a job?: No Are you interested in more education?: No THRIVE Score: 0 AUDIT C Alcohol Use Questionnaire (AUDIT-C) 1. How often do you have a drink containing alcohol?: Never Total Score: 0 Score Reviewed/Action Taken: Yes EDWARDO-7 AMB Questionnaire EDWARDO-7 Date EDWARDO - 7 assessed: 03/30/25 Feeling nervous, anxious, or on edge: 0 = Not at all Not being able to stop or control worryin = Not at all Worrying too much about different things: 0 = Not at all Trouble relaxin = Not at all Being so restless that it is hard to sit still: 0 = Not at all Becoming easily annoyed or irritable: 0 = Not at all Feeling afraid as if something awful might happen: 0 = Not at all Total EDWARDO-7 score (0-4 normal; 5-9 mild; 10-14 moderate; 15-21 severe): 0 Source: Developed by Drs. Destin Bradford, Anni Eden, Enrique Hawk and colleagues, with an educational yousif from [employer]. EDWARDO-7 Assessment Billing EDWARDO-7 Assessment Tool: EDWARDO-7 Assessment 93437 Physical exam (Primary Care) Vital Signs: Last Vital Signs Temp 97.1 F 03/30/25 13:56 Pulse 81 03/30/25 13:56 Resp 18 03/30/25 13:56 BP 130/72 03/30/25 13:56 Pulse Ox 95 03/30/25 13:56 Oxygen Delivery Method Room Air 03/30/25 13:56 BMI result Body Mass Index 34.8 Tobacco/Smoking Status: Tobacco use Status Tobacco use date assessed 03/30/25 03/30/25 14:03 Patient Tobacco Use Status Never used Tobacco 03/30/25 14:03 Tobacco use type Cigarette 03/30/25 14:03 e-Cigarette/Vaping Use Never Used 03/30/25 14:03 PHQ-9: PHQ-9 Score PHQ-9: Total score 0 03/30/25 14:14 Depression Screening Interpretation: Negative Thrive Assessment: Date of Thrive Assessment Date Thrive assessed 03/30/25 03/30/25 14:03 Results AMB Hemoglobin A1c AMB Hemoglobin A1c 9.7 % Last Edit by NIRMALA Rendon on 03/30/25 14:37 Coding Additional Codes EDWARDO-7 Assessment Billing - EDWARDO-7 Assessment Tool: EDWARDO-7 Assessment [id number] ([id number]) Assessment & Plan Assessment & Plan Orders: Orders Complete Blood Count Auto Diff Today E11.69 - Type 2 diabetes mellitus with other specified complication, E66.9 - Obesity, unspecified, Z00.00 - Encounter for general adult medical examination without abnormal findings Lipid Panel Today E11.69 - Type 2 diabetes mellitus with other specified complication, E66.9 - Obesity, unspecified, Z00.00 - Encounter for general adult medical examination without abnormal findings Vitamin D 25-OH Total Today - Type 2 diabetes mellitus with other specified complication, E66.9 - Obesity, unspecified, Z00.00 - Encounter for general adult medical examination without abnormal findings Hemoglobin A1c 3 Months - Type 2 diabetes mellitus with other specified complication, E66.9 - Obesity, unspecified, E78.5 - Hyperlipidemia, unspecified TSH reflex Free T4 3 Months - Type 2 diabetes mellitus with other specified complication, E66.9 - Obesity, unspecified, E78.5 - Hyperlipidemia, unspecified AMB Hemoglobin A1c Today Z13.9 - Encounter for screening, unspecified Comprehensive [place]. Panel Fast Today - Type 2 diabetes mellitus with other specified complication, E66.9 - Obesity, unspecified, Z00.00 - Encounter for general adult medical examination without abnormal findings TSH reflex Free T4 Today - Type 2 diabetes mellitus with other specified complication, E66.9 - Obesity, unspecified, Z00.00 - Encounter for general adult medical examination without abnormal findings UA CC w/rflx Micro + Cult Today - Type 2 diabetes mellitus with other specified complication, E66.9 - Obesity, unspecified, Z00.00 - Encounter for general adult medical examination without abnormal findings Lipid Panel 3 Months - Type 2 diabetes mellitus with other specified complication, E66.9 - Obesity, unspecified, E78.5 - Hyperlipidemia, unspecified UA CC w/rflx Micro + Cult 3 Months - Type 2 diabetes mellitus with other specified complication, E66.9 - Obesity, unspecified, E78.5 - Hyperlipidemia, unspecified Comprehensive [place]. Panel Fast 3 Months - Type 2 diabetes mellitus with other specified complication, E66.9 - Obesity, unspecified, E78.5 - Hyperlipidemia, unspecified
== END 2025-03-30 14:44 | disposition home or self-care (01) ==
DX: Z13.9 Encounter for screening, unspecified (principal)

== ENCOUNTER → 2025-03-30 13:49 | Outpatient (BNVA) | payer OTHER, SELFPAY | PROVIDERS: PCP Internal Medicine | DX: Z00.00 Encounter for general adult medical examination without abnormal findings (principal); E11.69 Type 2 diabetes mellitus with other specified complication; E78.5 Hyperlipidemia, unspecified; R74.8 Abnormal levels of other serum enzymes; E66.9 Obesity, unspecified; Z68.34 Body mass index [BMI] 34.0-34.9, adult | CPT/HCPCS: 83036; 96127 ==

== ENCOUNTER 2025-07-15 09:09 | Outpatient (AMB) | payer OTHER, SELFPAY ==
--- NOTE | 2025-07-15 09:18 | A.OFFPC_ITS ---
Vital Signs 07/15/25 09:19 Height 5 ft 2 in Weight 191 lb 4 oz BMI 35.0 BP 142/74 H Blood Pressure Location Lt brachial Position Sitting Respiration 18 Pulse 87 Pulse Source Pulse Oximeter Temp Source Temporal Artery Scan Pulse Oximetry (%) 99 Oxygen Delivery Method Room Air Intake Visit Reasons: dm/hld [employer] Required: No Accompanied by: Self / Same As Patient Allergies No Known Allergies (No Known Allergies*) Allergy (Verified 07/15/25 09:41) Medication List - Last Reconciled 07/15/25 by JAHAIRA Almeida multivitamin 1 tab PO DAILY Tobacco use date assessed: 07/15/25 Dental Screening Dental Screen Date: 07/15/25 Did you have a dental visit in the last 12 months?: No Did you have a dental problem in the last 6 months where you did not have access to dental care?: No Was dental information given to patient?: No HPI HPI Comments History of Present Illness Details The patient is a 60-year-old female presenting for follow-up on chronic conditions and immunization review. She was previously advised to get labs to monitor cholesterol and other parameters but did not complete them. Regarding her blood sugar, the patient has been using her own remedy, which was discussed at a previous visit. Her last reading was noted to be in the 9.7%, and has increased to 10.4%. The patient remains adamant about not taking any medications for his diabetes. The patient is attending nursing school and requires a review of her immunization status. She reports receiving a tetanus shot, MMR, and at least one dose of the hepatitis B vaccine in 2022. She has also received a flu vaccine this year. She has a history of a positive TB skin test, likely due to BCG vaccine [place], and has previously had a chest X-ray. Health Maintenance - The patient's Tdap vaccine was adminis tered in 2022 and is up to date. - The patient received an MMR vaccine in 2022. - A single dose of the Hepatitis B vacci ne is documented. - The patient received the influenza vac cine for the current season. - The patient has a history of a positiv e TB skin test and has had a chest X- ray. Social History - Education: The patient is currently in nursing school. Results [facility] Medical History Vaginal pain Obesity Wound of buttock Surgical History No pertinent past surgical history Family History Mother No problems noted. Father No problems noted. Social History Housing: House Patient Tobacco Use Status: Never used Tobacco Tobacco use type: Cigarette e-Cigarette/Vaping Use: Never Used Second Hand Smoke Exposure: No service: No Current occupational status: employed Cognitive needs: No Hearing needs: No Vision needs: Yes Questionnaire PHQ-9 Over the last 2 weeks, how often have you been bothered by any of the following problems? Depression Screening Interpretation: Negative Depression Screening Done: Yes Source: Developed by Drs. Destin Bradford, Enrique Valerio and colleagues, with an educational yousif from [employer] Thrive Questionnaire Date Thrive assessed: 03/30/25 EDWARDO-7 AMB Questionnaire EDWARDO-7 Date EDWARDO - 7 assessed: 03/30/25 Source: Developed by Drs. Destin Bradford, Anni Eden, Enrique Hawk and colleagues, with an educational yousif from [employer]. Review of Systems Narrative Review of Systems - General: Reports doing well. - Cardiovascular: Denies chest pain. - Respiratory: Denies dyspnea. Const Denies headache(s) Eyes Denies loss of vision ENT Denies vertigo, Denies dizziness, Denies headache(s) and Denies sore throat Card Denies chest pain, Denies leg edema and Denies lightheadedness Resp Denies cough, Denies hemoptysis and Denies wheezing GI Denies abdominal pain, Denies melena, Denies constipation, Denies diarrhea and Denies vomiting Denies urinary frequency, Denies dysuria and Denies urinary urgency Musc Denies arthralgias, Denies joint swelling, Denies numbness and Denies tingling Neuro Denies Abnormal speech present, Denies behavioral changes, Denies vertigo, Denies dizziness, Denies headache(s), Denies loss of vision, Denies memory loss, Denies numbness and Denies tingling Psych Denies anxiety, Denies behavioral changes, Denies depression, Denies memory loss and Denies panic attacks Mauricio/Lymph Denies easy bleeding and Denies easy bruising Aller/Immun Denies wheezing Physical exam (Primary Care) Vital Signs: Last Vital Signs Pulse 87 07/15/25 09:19 Resp 18 07/15/25 09:19 BP 142/74 H 07/15/25 09:19 Pulse Ox 99 07/15/25 09:19 Oxygen Delivery Method Room Air 07/15/25 09:19 BMI result Body Mass Index 35.0 Tobacco/Smoking Status: Tobacco use Status Tobacco use date assessed 07/15/25 07/15/25 09:24 Patient Tobacco Use Status Never used Tobacco 07/15/25 09:24 Tobacco use type Cigarette 07/15/25 09:24 e-Cigarette/Vaping Use Never Used 07/15/25 09:24 Depression Screening Interpretation: Negative Thrive Assessment: Date of Thrive Assessment Date Thrive assessed 03/30/25 07/15/25 09:24 Narrative Physical Exam - Respiratory: Lungs are clear to auscultation bilaterally. Const General: healthy appearing, no acute distress, alert and awake Nutritional Appearance: well nourished Orientation/consciousness: oriented to person, oriented to place and oriented to time HENMT Ears: TM's normal bilaterally General nose exam: Normal nasal mucous membranes and turbinates present Eyes Conjunctivae: conjunctivae normal Sclerae: sclerae normal Pupils: Equal, round and reactive pupils present Neck Neck: Yes no lymphadenopathy and Yes no JVD Thyroid: Thyroid normal Carotids: no bruits Resp Effort & Inspection: normal respiratory effort and not tachypneic Auscultation: no crackles, no rales, no rhonchi and no wheezes Cardio Rate: regular rate Rhythm: regular rhythm Heart sounds: no murmurs and normal S1 and S2 GI Palpation (GI): Soft to palpation, nontender, no hepatomegaly and no splenomegaly Auscultation: normal bowel sounds Skin General skin exam: no rashes or lesions noted and dry skin Neuro General: oriented to person, oriented to place and oriented to time Cranial nerves: Yes Equal, round and reactive pupils present Speech: No Abnormal speech present Gait exam (Neuro): Normal gait present Motor exam (neuro): no tremor noted Extrem Right upper extremity: full ROM Left upper extremity: full ROM Right lower extremity: full ROM; no edema Left lower extremity: full ROM; no edema Psych Mental Status: mental status grossly normal Speech and movement: Normal speech and movement present Affect: normal affect Attitude: cooperative Thought process: Normal thought process present Results AMB Hemoglobin A1c AMB Hemoglobin A1c 10.4 % Last Edit by NIRMALA Esquivel on 07/15/25 09:5 4 Results Reviewed Results Reviewed: Laboratory Last Values Hgb A1c (Clinic) 10.4 % (4.0-6.0) H 07/15/25 09:40 Coding Level of Care Code Est Pt Level 4 (35652) Diagnoses Type 2 diabetes mellitus with obesity E11.69; E66.9 Hyperlipidemia, unspecified hyperlipidemia type E78.5 Hyperlipidemia type: unspecified Elevated liver enzymes R74.8 Immunization advised Z23 Time Spent (min) 37 Assessment & Plan Assessment & Plan (1) Type 2 diabetes mellitus with obesity: Code(s): E11.69 - Type 2 diabetes mellitus with other specified complication; E66.9 - Obesity, unspecified Category: Medical Plan: Hemoglobin A1c 10.4% increased 9.7%-goal less than 7.0% Discussed with the patient that her natural remedy is not working, and her orga ns could be compromised if her glucose continues to be elevated. She is hesitant to use metformin due to concerns about side effects and is using alternative herbal medications, Bitters. Patient refused to try any other medication. Long discussion about the severity of her A1c in the risk of end organ damages, the patient remains adamant about not taking any other medications. Will recheck a1c and fasting glucose in 3 months (2) HLD (hyperlipidemia): Code(s): E78.5 - Hyperlipidemia, unspecified Category: Medical Qualifiers: Hyperlipidemia type: unspecified Qualified Code(s): E78.5 - Hyperlipidemia, unspecified Plan: Total cholesterol went from 257 to 252, LDL from 183 to 179 on 04/01/2023 The patient has hyperlipidemia with elevated cholesterol levels noted in previous labs. She has not completed preordered labs for visit. Urged the patient to complete blood work to further evaluate. Discussed starting on medication lower her cholesterol because her risk for a stroke or heart attack is increased due to her uncontrolled diabetes. (3) Elevated liver enzymes: Code(s): R74.8 - Abnormal levels of other serum enzymes Category: Medical Plan: Patient liver enzymes continues to be elevated on 04/01/2023. She denies abdominal pain. Similarly, the patient does not want to work this up further due to feeling okay. 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 Based on the titer results, a booster dose may be administered if immunity is insufficient. A blood test for tuberculosis will also be done, as the school requires it and a chest x-ray has been done previously due to a positive skin test. Plan Discussion Notes I discussed the need for lab work to monitor her chronic conditions, specifically her cholesterol and blood sugar, as she had not completed the previously ordered tests. I explained that an in-office A1c would help evaluate if her personal remedies for blood sugar are effective, noting that her levels appear to be rising. 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 I explained that while some clinical sites may require the flu shot, it's a general requirement for patient-facing roles. I informed her that we would order blood tests to check her immunity titers for Varicella, MMR, and Hepatitis B, and if the titers are low, a booster dose would be necessary. We also discussed the need for a TB blood test given her history of a positive skin test. I ordered the necessary labs and advised her to check out at the front desk coordinator to complete the process. Patient Instructions - Proceed to get your blood drawn for the ordered tests. - The lab will check your blood sugar (A1c), cholesterol, and immunity levels (titers) for Varicella, MMR, and Hepatitis B as required for school. - You will also have a blood test for tuberculosis (TB). - If your immunity is low based on the test results, you may need to get a booster shot. - Do not forget to check out at the front desk coordinator. Orders: Orders AMB Hemoglobin A1c 07/15/25 E11.69 - Type 2 diabetes mellitus with other specified complication, E66.9 - Obesity, unspecified MMR IgG Measles Mumps Rubella 07/15/25 Z23 - Encounter for immunization Hemoglobin A1c 3 Months E11.69 - Type 2 diabetes mellitus with other specified complication, E66.9 - Obesity, unspecified, E78.5 - Hyperlipidemia, unspecified, R74.8 - Abnormal levels of other serum enzymes Complete Blood Count Auto Diff 3 Months - Type 2 diabetes mellitus with other specified complication, E66.9 - Obesity, unspecified, E78.5 - Hy perlipidemia, unspecified, R74.8 - Abnormal levels of other serum enzymes Comprehensive Ty Ty. Panel Fast 3 Months - Type 2 diabetes mellitus with other specified complication, E66.9 - Obesity, unspecified, E78.5 - Hyperlipidemia, unspecified, R74.8 - Abnormal levels of other serum enzymes Lipid Panel 3 Months - Type 2 diabetes mellitus with other specified complication, E66.9 - Obesity, unspecified, E78.5 - Hyperlipidemia, unspecified, R74.8 - Abnormal levels of other serum enzymes TSH reflex Free T4 3 Months - Type 2 diabetes mellitus with other specified complication, E66.9 - Obesity, unspecified, E78.5 - Hyperlipidemia, unspecified, R74.8 - Abnormal levels of other serum enzymes T Spot TB 07/15/25 Z11.1 - Encounter for screening for respiratory tuberculosis Varicella IgG Antibody 07/15/25 Z23 - Encounter for immunization Hepatitis B Profile 07/15/25 Z23 - Encounter for immunization UA CC w/rflx Micro + Cult 3 Months - Type 2 diabetes mellitus with other specified complication, E66.9 - Obesity, unspecified, E78.5 - Hyperlipidemia, unspecified, R74.8 - Abnormal levels of other serum enzymes
[2025-07-15 09:19] VITALS: BP 142/74; PULSE 87; RESP 18; O2SAT 99; BMI 35.0
== END 2025-07-15 10:00 | disposition home or self-care (01) ==
LOC: HO.HMCH 09:10
DX: E11.69 Type 2 diabetes mellitus with other specified complication (principal); E66.9 Obesity, unspecified

== ENCOUNTER 2025-07-15 09:09 | Outpatient (REF) | payer OTHER, SELFPAY ==
[2025-07-15 10:46] LABS: MANUAL DIFF FLAG NO
[2025-07-15 11:24] LABS: Hematocrit 42.0 % (37.0-47.0); Hemoglobin 13.8 g/dl (12.0-16.0); Imm Gran Abs Auto 0.01 X10*3/uL (0.00-0.03); Imm Gran Pct Auto 0.2 % (0.0-0.4); Lymphocytes Absolute Auto 2.3 X10*3/uL (1.2-4.9); Mean Corpuscular HGB Conc 32.9 g/dl (31.0-35.0); Mean Corpuscular Hemoglobin 27.1 pg (27.0-33.0); Mean Corpuscular Volume 82.5 fL (80.0-98.0); NRBC Abs Auto 0.000 X10*3/uL (0.0-0.012); NRBC Pct Auto 0.0 /100WBC (0.0-0.2); Platelet Count 247 X10*3/uL (160-400); Red Blood Count 5.09 X10*6/uL (4.20-5.50); White Blood Count 4.2 X10*3/uL (4.8-10.8)
[2025-07-15 11:52] LABS: Appearance Urine Cloudy; Glucose Urine UA Negative (Negative); PH 6.5 (5.0-9.0); Specific Gravity - Urine 1.010 (1.005-1.025)
[2025-07-15 12:09] LABS: Alanine Aminotransferase 46 U/L (0-31); Albumin Level 4.6 g/dL (3.5-5.0); Alkaline Phosphatase 113 U/L (39-117); Anion Gap 13 (12-20); Aspartate Amino Transferase 28 U/L (5-31); Blood Urea Nitrogen 10 mg/dL (9-16); Calcium 9.5 mg/dL (8.4-10.2); Carbon Dioxide 27 mmol/L (22-29); Chloride 102 mmol/L (96-108); Cholesterol 276 mg/dL (<200); Estimated Glomerular Filt Rate > 60; HDL Cholesterol 52 mg/dL (>40); Potassium 4.1 mmol/L (3.3-5.1); Sodium 138 mmol/L (135-145); Total Protein 7.8 g/dL (6.5-8.0); Triglycerides 137 mg/dL (<150)
[2025-07-15 12:15] LABS: HBS Num1 0.00 mIU/mL (0-7.99); HBc Num1 0.10 S/CO (0.00-0.79); HBsAGNum1 0.39 S/CO (0.00-0.99); Hepatitis B Surface Antigen Negative (Negative); ~Hepatitis B Surface Antibody NONREACTIVE (Nonreactive)
[2025-07-16 07:09] LABS: Rubeola IgG (Measles) >300.00 AU/mL
[2025-07-18 07:18] LABS: TS Negative Control Passed; TS Panel A 83; TS Panel B 76; TS Positive Control Passed; TSpotTB Positive (Negative)
== END 2025-07-15 09:10 | disposition home or self-care (01) ==
LOC: HO.LAB 09:09
DX: Z00.00 Encounter for general adult medical examination without abnormal findings (principal); Z11.1 Encounter for screening for respiratory tuberculosis; E11.69 Type 2 diabetes mellitus with other specified complication; E66.9 Obesity, unspecified; Z68.35 Body mass index [BMI] 35.0-35.9, adult
CPT/HCPCS: 36415; 80053; 80061; 81003; 82306; 83036; 84443; 85025; 86481; 86704; 86706; 86735; 86762; 86765; 86787; 87340